=== PATIENT | female | born 1980 | race Caucasian/White ===

== ENCOUNTER 2019-02-07 14:11 | Inpatient (IN) | payer OTHER ==
--- NOTE | 2019-02-07 14:55 | ED ---
Psychiatric Complaint - HPI Summary HPI Summary: Patient is a 38-year-old female with a history/diagnosis of bipolar disorder and PTSD and major depressive disorder who presents to the ED by encouragement of her therapist for worsening PTSD flashbacks and physical pain associated with this. She states she has lost about 35 pounds she has not been eating due to her MDD in the flashbacks. She has been working very closely with a therapist, and has been feeling as though she has been improving. However, she states she continues to worsen and is unable to work through her problems the way she would like. She was like to be admitted to [facility]. She denies any SI or HI at this time. Denies any self-harm. Denies any drug or alcohol use. Endorses smoking history. Denies any physical pain. - History Of Current Complaint Chief Complaint: EDMentalHealth Time Seen by Provider: 02/07/19 14:29 Hx Obtained From: Patient ?: No Onset/Duration: Sudden Onset Timing: Constant Severity Initially: Moderate Severity Currently: Moderate Character: Depressed, Anxious Aggravating Factor(s): Nothing Alleviating Factor(s): Nothing Associated Signs And Symptoms: Positive: Negative - Risk Factor(s) Completed Suicide Risk Factors: Negative - Allergies/Home Medications Allergies/Adverse Reactions: Allergies Allergy/AdvReac Type Severity Reaction Status Date / Time amoxicillin Allergy Hives Verified 02/07/19 14:28 ciprofloxacin [From Cipro] Allergy Hives Verified 02/07/19 14:28 Home Medications: Home Medications Lurasidone(*) [Latuda] 60 mg PO BEDTIME 02/07/19 [History Confirmed 02/07/19] clonazePAM TAB(*) [KlonoPIN TAB(*)] 1 mg PO BEDTIME 02/07/19 [History Confirmed 02/07/19] clonazePAM TAB(*) [KlonoPIN TAB(*)] 2 mg PO QAM 02/07/19 [History Confirmed 01/21] lamoTRIgine TAB(*) [LaMICtal TAB(*)] 200 mg PO QAM 02/07/19 [History Confirmed 02/07/19] lamoTRIgine TAB(*) [LaMICtal TAB(*)] 300 mg PO BEDTIME 02/07/19 [History Confirmed 02/07/19] traZODone TAB* [Desyrel TAB*] 150 mg PO BEDTIME PRN 02/07/19 [History Confirmed 02/07/19] PMH/Surg Hx/FS Hx/Imm Hx Previously Healthy: Yes - Immunization History Hx Pertussis Vaccination: No Immunizations Up to Date: Yes Infectious Disease History: No Infectious Disease History: Denies: Traveled Outside the [place] in Last 30 Days - Social History Occupation: Unemployed Lives: Alone Alcohol Use: None Hx Substance Use: No Substance Use Type: Reports: None Hx Tobacco Use: Yes Smoking Status (MU): Current Every Day Smoker Review of Systems Negative: Fever, Chills, Fatigue, Skin Diaphoresis Negative: Palpitations, Chest Pain Negative: Shortness Of Breath, Cough Genitourinary: Negative Positive: no symptoms reported, see HPI Negative: Arthralgia, Myalgia Positive: Anxious, Depressed All Other Systems Reviewed And Are Negative: Yes Physical Exam Triage Information Reviewed: Yes Vital Signs On Initial Exam: Initial Vitals Temp Pulse Resp BP Pulse Ox 98.6 F 108 20 133/74 98 02/07/19 14:15 02/07/19 14:15 02/07/19 14:15 02/07/19 14:15 02/07/19 14:15 Vital Signs Reviewed: Yes Appearance: Positive: Well-Appearing, Well-Nourished Skin: Positive: Warm, Skin Color Reflects Adequate Perfusion Head/Face: Positive: Normal Head/Face Inspection Eyes: Positive: EOMI, Conjunctiva Clear Neck: Positive: Supple, No Lymphadenopathy Respiratory/Lung Sounds: Positive: Clear to Auscultation, Breath Sounds Present Cardiovascular: Positive: RRR, Pulses are Symmetrical in both Upper and Lower Extremities Musculoskeletal: Positive: Strength/ROM Intact Neurological: Positive: Speech Normal Psychiatric: Positive: Affect/Mood Appropriate AVPU Assessment: Alert Diagnostics - Vital Signs Vital Signs Temp Pulse Resp BP Pulse Ox 02/07/19 14:15 98.6 F 108 20 133/74 98 - Laboratory Result Diagrams: 02/07/19 15:15 02/07/19 15:15 Lab Statement: Any lab studies that have been ordered have been reviewed, and results considered in the medical decision making process. Course/Dx - Course Course Of Treatment: Patient is evaluated for major depressive disorder and PTSD flashbacks. She was sent here by her therapist to assess her decline. She is cleared for mental health at 2:55 PM. Patient is admitted. - Differential Dx/Clinical Impression Provider Diagnosis: Depression Discharge - Sign-Out/Discharge Documenting (check all that apply): Patient Departure All imaging exams completed and their final reports reviewed: No Patient Received Moderate/Deep Sedation with Procedure: No - Discharge Plan Condition: Stable Disposition: PSYCHIATRIC FACILITY-[facility] - Billing Disposition and Condition Condition: STABLE Disposition: Psychiatric Facility [facility] - Attestation Statements Provider Attestation: I was available for consult. This patient was seen by the NA. The patient was not presented to, seen by, or examined by me. -Forrest
[2019-02-07 15:25] LABS: ABS Basophils 0.1 10^3/ul (0-0.2); ABS Eosinophils 0.1 10^3/ul (0-0.6); ABS Lymphocytes 2.5 10^3/ul (1.0-4.8); ABS Monocytes 0.4 10^3/ul (0-0.8); ABS Neutrophils 4.6 10^3/ul (1.5-7.7); Eosinophil % 0.8 %; Hematocrit 40 % (35-47); Hemoglobin 13.6 g/dL (12.0-16.0); Lymphocyte % 33.1 %; Mean Corpuscular HGB Conc 35 g/dL (31-36); Mean Corpuscular Hemoglobin 33 pg (27-31); Mean Corpuscular Volume 95 fL (80-97); Mean Platelet Volume 7.9 fL (7.4-10.4); Nucleated Red Blood Cells % 0.1; Platelet Count 201 10^3/uL (150-450); Red Blood Count 4.15 10^6 /uL (3.70-4.87); Red Cell Distribution Width 13 % (10.5-15); White Blood Count 7.6 10^3/uL (3.5-10.8)
[2019-02-07 15:42] LABS: ALT 6 U/L (7-52); AST 12 U/L (13-39); Albumin 4.2 g/dL (3.2-5.2); Albumin/Globulin Ratio 2.2 (1-3); Alkaline Phosphatase 41 U/L (34-104); Anion Gap 5 mmol/L (2-11); BUN/Creatinine Ratio 14.9 (8-20); Blood Urea Nitrogen 10 mg/dL (6-24); CO2 Carbon Dioxide 23 mmol/L (22-32); Calcium 9.2 mg/dL (8.6-10.3); Chloride 110 mmol/L (101-111); EGFR African American 118.6 (>60); Globulin 1.9 g/dL (2-4); Glucose 88 mg/dL (70-100); Magnesium 1.9 mg/dL (1.9-2.7); Potassium 3.5 mmol/L (3.5-5.0); Sodium 138 mmol/L (135-145); Total Protein 6.1 g/dL (6.4-8.9)
[2019-02-07 15:49] LABS: Urine Appearance Clear; Urine Bilirubin Negative (Negative); Urine Blood Negative (Negative); Urine Color Straw; Urine Glucose Negative (Negative); Urine Ketones Negative (Negative); Urine Nitrite Negative (Negative); Urine Protein Negative (Negative); Urine Specific Gravity 1.004 (1.010-1.030); Urine Urobilinogen Negative (Negative)
[2019-02-07 16:03] LABS: Alcohol < 10 mg/dL (<10); Salicylate < 2.50 mg/dL (<30)
[2019-02-07 16:12] LABS: TSH (Thyroid Stimulating Horm) 0.62 mcIU/mL (0.34-5.60)
[2019-02-07 16:17] LABS: Urine Benzodiazepine Screen None Detected (None Detect); Urine Opiates Screen None Detected (None Detect)
[2019-02-07 16:24] LABS: Folate 19.73 ng/mL (>3.99)
[2019-02-07 16:33] LABS: Acetaminophen < 15 mcg/mL
--- NOTE | 2019-02-07 18:27 | PN ---
Progress Note - Progress Note Date of Service: 02/07/19 Note: Patient signed out to me by Noemi VELEZ pending mental health evaluation. Per Dr. Perez, patient will be a voluntary admission to [facility] psychiatric unit in stable condition with diagnosis of PTSD.
--- NOTE | 2019-02-07 18:41 | UC ---
- Progress Note Progress Note: Mental health evaluated states pt to be admitted Legal paperwork signed by me MANAGER SOFTWARE DEVELOPMENT and offset second press operator notified - Consult/PCP Time Called: 17:15 Course/Dx - Diagnoses Provider Diagnoses: Depression Discharge - Sign-Out/Discharge Documenting (check all that apply): Patient Departure - Discharge Plan Condition: Stable Disposition: PSYCHIATRIC FACILITY-[facility] Referrals: No Primary Care Phys,NOPCP [Primary Care Provider] - - Billing Disposition and Condition Condition: STABLE Disposition: Psychiatric Facility [facility]
[2019-02-07] MEDS ORDERED: traZODone TAB* 50 MG TAB PO PRN (21:13)
[2019-02-07] MEDS ORDERED: clonazePAM TAB(*) 1 MG PO SCH (21:30)
[2019-02-07] MEDS ORDERED: Lurasidone(*) 60 MG TAB PO SCH (21:30)
[2019-02-07] MEDS: lamoTRIgine TAB(*) 100 MG PO SCH (21:48)
[2019-02-08] MEDS: lamoTRIgine TAB(*) 100 MG PO SCH ×2 (08:24→20:48)
[2019-02-08] MEDS ORDERED: clonazePAM TAB(*) 1 MG PO SCH (09:00)
[2019-02-08 09:43] LABS: HDL Cholesterol 44.6 mg/dL
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
[2019-02-08] MEDS: Lurasidone(*) 60 MG TAB PO SCH (19:16)
[2019-02-08] MEDS: Prazosin CAP* 1 MG PO SCH (20:47)
[2019-02-08] MEDS: clonazePAM TAB(*) 1 MG PO SCH (20:49)
[2019-02-09] MEDS ORDERED: Al Hydrox/Mg Hydrox/Simet LIQ* 30 ML UDC PO PRN (03:50)
[2019-02-09] MEDS ORDERED: Nicotine* 2MG (FRUIT FLAVOR) GUM PO PRN (03:50)
[2019-02-09] MEDS ORDERED: Acetaminophen TAB* 325 MG PO PRN (03:50)
[2019-02-09] MEDS ORDERED: clonazePAM TAB(*) 0.5 MG PO PRN (08:00)
[2019-02-09] MEDS: Multivitamins/Minerals TAB PO SCH (08:21)
[2019-02-09] MEDS: clonazePAM TAB(*) 1 MG PO SCH ×2 (08:21→21:35)
[2019-02-09] MEDS: lamoTRIgine TAB(*) 100 MG PO SCH ×2 (08:21→21:33)
[2019-02-09] MEDS: Prazosin CAP* 1 MG PO SCH ×2 (10:21→21:33)
[2019-02-09] MEDS: Lurasidone(*) 60 MG TAB PO SCH (17:21)
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
[2019-02-10] MEDS: clonazePAM TAB(*) 1 MG PO SCH ×2 (08:21→20:17)
[2019-02-10] MEDS: Multivitamins/Minerals TAB PO SCH (08:21)
[2019-02-10] MEDS: lamoTRIgine TAB(*) 100 MG PO SCH ×2 (08:21→20:18)
[2019-02-10] MEDS: Escitalopram * 5 MG TAB PO SCH (08:22)
[2019-02-10] MEDS: clonazePAM TAB(*) 0.5 MG PO PRN (13:46)
--- NOTE | 2019-02-10 17:10 | PN ---
Subjective - Subjective Date of Service: 02/10/19 Service Type: 98743 Hosp care 15 min low complexity Subjective: Sari is seen in weekend coverage for NPP, Nelly Victor. The patient is in good spirits and is hopeful for discharge to home on Tuesday. She denies SI. She does complain of worsening of baseline essential tremor and wonders if perhaps this is from the introduction of escitalopram. She also notes that taking lurasidone at dinnertime makes her sedated and she requests switching this back to HS administration. She agrees to take it with her PM Ensure to improve bioavailability. Objective - General Observations Appearance: Well Groomed Appears Stated Age: Yes Stature: WNL Posture: WNL Eye Contact: Average Behavior/Activity: WNL - Interaction Observations Attitude Towards Examiner: Cooperative Stated Mood: Euthymic Affect: Full Speech Pattern/Tone: Clear, Appropriate, Normal Volume Thought Process: Coherent Perception: WNL Thought Content: WNL Hallucination Type: None Delusion Type: None - Cognitive Function Orientation: A&O x 4 Level of Consciousness: Awake Cognition: WNL Estimated Intelligence: Normal Insight: WNL Judgment Within Normal Limits: Yes - Medication Compliance Cooperative with Inpatient Medication Regimen: Yes - Group Participation Participates in Group Activities: Yes Assessment - Assessment Merits Inpatient Hospitalization: Consolidate Improvements, Pending Safe DC Plan Inpatient DSM-V Dx: F43.10 Clinical Impression: Sari is a 38-year-old white, single woman who has suicidal thoughts and plans as well as high anxiety related to recovered memories from ages 1 or 2 and age 5. These memories are so troubling that they led Sari to come to [place] from [place] to seek help at this hospital to "process my memories." BSU: Problem List - Patient Problems (1) PTSD (post-traumatic stress disorder) Current Visit: Yes Status: Acute Priority: High Code(s): F43.10 - POST- TRAUMATIC STRESS DISORDER, UNSPECIFIED SNOMED Code(s): 29710172 Plan - Plan Treatment Plan: Name: SARI BULLARD Birthdate: 1980 [id number] Sari would like her medications changed and in some ways this is warranted. We will start Lexapro 5 mg. We added prazosin successfully last night. She will be monitored for safety. I will order the MMPI, as well. Will change lurasidone back to qhs administration per the patient's preference. To be taken with Ensure. Continued Medication Management: Different Medication Medications: Current Medications Acetaminophen (Tylenol Tab*) 650 mg PO Q4H PRN PRN Reason: PAIN; OR TEMP >101 Al Hydrox/Mg Hydrox/Simethicone (Maalox Plus*) 30 ml PO Q4H PRN PRN Reason: INDIGESTION Clonazepam (Klonopin Tab(*)) 1 mg PO BID [facility] Last Admin: 02/10/19 08:21 Dose: 1 mg Clonazepam (Klonopin Tab(*)) 0.5 mg PO Q2H PRN PRN Reason: ANXIETY Last Admin: 02/10/19 13:46 Dose: 0.5 mg Escitalopram Oxalate (Lexapro *) 5 mg PO DAILY [facility] Last Admin: 02/10/19 08:22 Dose: 5 mg Lamotrigine (Lamictal Tab(*)) 300 mg PO BEDTIME [facility] Last Admin: 02/09/19 21:33 Dose: 300 mg Lamotrigine (Lamictal Tab(*)) 200 mg PO QAM [facility] Last Admin: 02/10/19 08:21 Dose: 200 mg Lurasidone HCl (Latuda) 60 mg PO BEDTIME [facility] Multivitamins/Minerals (Theragran/Minerals Tab*) 1 tab PO DAILY [facility] Last Admin: 02/10/19 08:21 Dose: 1 tab Nicotine Polacrilex (Nicotine Gum*) 2 mg PO Q2H PRN PRN Reason: CRAVING Prazosin HCl (Minipress Cap*) 1 mg PO 2100 [facility] Last Admin: 02/09/19 21:33 Dose: 1 mg - Discharge Plan Discharge Plan: Inpatient Hospitalization Lab Results - Lab Results Lab Results: 02/08/19 02/08/19 07:56 07:56 Hemoglobin A1c 4.8 Triglycerides 64 Cholesterol 146 LDL Cholesterol 89 HDL Cholesterol 44.6
[2019-02-10] MEDS: Lurasidone(*) 60 MG TAB PO SCH ×2 (18:28→20:16)
[2019-02-10] MEDS: Prazosin CAP* 1 MG PO SCH (20:17)
[2019-02-11] MEDS: lamoTRIgine TAB(*) 100 MG PO SCH ×2 (08:27→21:09)
[2019-02-11] MEDS: Multivitamins/Minerals TAB PO SCH (08:27)
[2019-02-11] MEDS: clonazePAM TAB(*) 1 MG PO SCH ×3 (08:27→21:09)
[2019-02-11] MEDS: Escitalopram * 5 MG TAB PO SCH ×2 (08:30→09:44)
[2019-02-11] MEDS: clonazePAM TAB(*) 0.5 MG PO PRN (11:15)
[2019-02-11] MEDS: Prazosin CAP* 1 MG PO SCH (21:09)
[2019-02-11] MEDS: Lurasidone(*) 60 MG TAB PO SCH (21:10)
[2019-02-12] MEDS: Escitalopram * 5 MG TAB PO SCH (08:18)
[2019-02-12] MEDS: lamoTRIgine TAB(*) 100 MG PO SCH (08:18)
[2019-02-12] MEDS: clonazePAM TAB(*) 1 MG PO SCH (08:18)
[2019-02-12] MEDS: Multivitamins/Minerals TAB PO SCH (08:18)
[2019-02-12 11:12] VITALS: BP 104/81
[2019-02-12] MEDS ORDERED: clonazePAM TAB(*) 0.5 MG PO PRN (11:25)
== END 2019-02-12 13:45 | disposition home or self-care (01) | DRG 882 ==
LOC: ED 14:11 → BSU 18:43
PROVIDERS: ADMIT Psychiatry & Neurology Psychiatry; ATTEND Psychiatry & Neurology Psychiatry
DX: F43.10 Post-traumatic stress disorder, unspecified (principal); R45.851 Suicidal ideations; F41.9 Anxiety disorder, unspecified; F31.9 Bipolar disorder, unspecified; F41.0 Panic disorder [episodic paroxysmal anxiety]; F17.210 Nicotine dependence, cigarettes, uncomplicated; F12.90 Cannabis use, unspecified, uncomplicated; Z79.899 Other long term (current) drug therapy
CPT/HCPCS: 36415; 80053; 80061; 80307; 80320; 80329; 81003; 82542; 82607; 82746; 83036; 83735; 84207; 84443; 85025; 99222; 99231; 99232; 99238; 99285; A9270-GY; G0480